=== PATIENT | female | born 1970 | race Caucasian/White ===

== ENCOUNTER 2017-03-08 18:14 | Emergency (ER) | payer BC | END 2017-03-08 20:04 | disposition home or self-care (01) | LOC: ER 18:14 | DX: N39.0 Urinary tract infection, site not specified (principal); N32.89 Other specified disorders of bladder; Z87.442 Personal history of urinary calculi; Z90.710 Acquired absence of both cervix and uterus; Z79.899 Other long term (current) drug therapy; Z88.5 Allergy status to narcotic agent | CPT/HCPCS: 36415; 96361; 96365; 96375; J0696; J1885; J2060 ==

== ENCOUNTER 2017-03-19 19:44 | Observation (INO) | payer BC ==
[~2017-03-19] VITALS: Ht 170.2 cm; Wt 85.3 kg
--- NOTE | 2017-03-20 15:54 | NUR ---
1520 - PATIENT C/O ITCHING. BENADRYL 25 MG PO ORDERED/MD AND ADMINISTERED.
--- NOTE | 2017-03-20 18:50 | NUR ---
1830 - PATIENT DISCHARGED HOME/MD ORDER. IV REMOVED. APPTS. AND PRESCRIPTIONS GIVEN. AMBULATORY. HOME WITH VIA PRIVATE VEHICLE.
== END 2017-03-20 18:50 | disposition home or self-care (01) ==
LOC: ER 19:44 → MED 22:57
PROVIDERS: ADMIT Internal Medicine
DX: N23 Unspecified renal colic (principal); G25.81 Restless legs syndrome; N30.10 Interstitial cystitis (chronic) without hematuria; N80.9 Endometriosis, unspecified; N32.81 Overactive bladder; N13.5 Crossing vessel and stricture of ureter without hydronephrosis; Z87.442 Personal history of urinary calculi; Z90.710 Acquired absence of both cervix and uterus; Z79.899 Other long term (current) drug therapy; Z79.891 Long term (current) use of opiate analgesic; Z88.6 Allergy status to analgesic agent
CPT/HCPCS: 36415; 51702; 74020; 96361; 96365; 96374; 96375; 96376; G0378; J1885; J2550

== ENCOUNTER → 2017-03-19 | Day surgery (SDC) | payer BC ==
[~2017-03-19] VITALS: Ht 170.2 cm; Wt 83.0 kg
== END | disposition home or self-care (01) ==
LOC: SDC 11:21
DX: N13.2 Hydronephrosis with renal and ureteral calculous obstruction (principal); Z90.710 Acquired absence of both cervix and uterus; Z88.8 Allergy status to other drugs, medicaments and biological substances; Z79.899 Other long term (current) drug therapy
CPT/HCPCS: C1894; C2617; J1885; J2704; Q9967

== ENCOUNTER 2017-03-24 19:05 | Emergency (ER) | payer BC | END 2017-03-24 22:17 | disposition home or self-care (01) | LOC: ER 19:05 | DX: N23 Unspecified renal colic (principal); Z87.442 Personal history of urinary calculi; Z90.710 Acquired absence of both cervix and uterus; Z79.899 Other long term (current) drug therapy; Z88.5 Allergy status to narcotic agent | CPT/HCPCS: 96361; 96374; 96375; J1885 ==